=== PATIENT | female | born 1970 | race Hispanic/Latino ===

== ENCOUNTER 2017-07-31 01:56 | Emergency (ER) | payer SELFPAY ==
[2017-07-31 02:07] VITALS: BMI 16.4
[2017-07-31 02:16] VITALS: RESP 20; TEMP 98.6
--- NOTE | 2017-07-31 02:17 | ED PDOC ---
Arrival/HPI - General Chief Complaint: Female Genitourinary Time Seen by Provider: 07/31/17 02:03 Historian: Patient - History of Present Illness Narrative History of Present Illness (Text): 07/31/17 02:14 Franco Figueroa is a 47 year old female who presents to the emergency department complaining of 2 week duration of left lower quadrant abdominal pain associated with difficulty urinating. Patient also reports of some dizziness. Denies any fever, chills, chest pain, shortness of breath, nausea, vomiting, diarrhea, or any other complaints at this time. Time/Duration: > week (2 weeks ) Severity Level: Mild Activities at Onset: Light Past Medical History - Provider Review Nursing Documentation Reviewed: Yes - Reproductive Menopause: Yes - Cardiac Hx Cardiac Disorders: No (denies) - Psychiatric Hx Substance Use: No - Surgical History Hx Appendectomy: Yes Hx Orthopedic Surgery: Yes (L femur) - Anesthesia Hx Anesthesia: Yes Hx Anesthesia Reactions: No Family/Social History - Physician Review Nursing Documentation Reviewed: Yes Family/Social History: No Known Family HX Smoking Status: Current Some Days Smoker Hx Alcohol Use: No Hx Substance Use: No Allergies/Home Meds Allergies/Adverse Reactions: Allergies No Known Allergies Allergy (Verified 07/31/17 02:16) Review of Systems - Physician Review All systems were reviewed & negative as marked: Yes - Review of Systems Constitutional: Normal Respiratory: Normal. absent: SOB, Cough, Sputum Cardiovascular: Normal. absent: Chest Pain, Palpitations Gastrointestinal: Abdominal Pain (left lower quadrant ). absent: Nausea, Vomiting Genitourinary Female: Urine Output Changes (difficulty to urinate ). absent: Hematuria Neurological: Dizziness. absent: Headache Physical Exam Vital Signs Temp Pulse Resp BP Pulse Ox 07/31/17 05:55 83 20 101/58 L 98 07/31/17 02:15 98.6 F 68 20 113/72 95 - Systems Exam Head: Present: Atraumatic, Normocephalic Pupils: Present: PERRL Conjunctiva: Present: Normal Mouth: Present: Moist Mucous Membranes Respiratory/Chest: Present: Clear to Auscultation, Good Air Exchange. No: Respiratory Distress, Accessory Muscle Use Cardiovascular: Present: Regular Rate and Rhythm, Normal S1, S2. No: Murmurs Abdomen: Present: Normal Bowel Sounds. No: Tenderness, Distention, Peritoneal Signs Back: Present: Normal Inspection. No: CVA Tenderness Upper Extremity: Present: Normal Inspection. No: Cyanosis, Edema Lower Extremity: Present: Normal Inspection. No: Edema Neurological: Present: GCS=15, CN II-XII Intact, Speech Normal, Motor Func Grossly Intact, Normal Sensory Function Skin: Present: Warm, Dry, Normal Color. No: Rashes Psychiatric: Present: Alert, Oriented x 3, Normal Insight, Normal Concentration Medical Decision Making ED Course and Treatment: 07/31/17 02:19 Impression: A 47 year old female who presents to the emergency department complaining of left lower quadrant abdominal pain associated with difficulty urinating. Plan: -- Labs -- Bladder scan -- POC urine -- Urinalysis -- Reassess and disposition Progress Notes: 07/31/17 05:31 catheter inserted with 200 ml of urine return. pt states symptoms have improved post treatment. States she is comfortable with the plan to be discharged home. Advised to follow up with PMD within few days and return to emergency department for new/worsening symptoms. - Lab Interpretations Lab Results: 07/31/17 02:47 07/31/17 03:15 Lab Results 07/31/17 03:15: Sodium 140, Potassium 4.6, Chloride 98, Carbon Dioxide 35 H, Anion Gap 12, BUN 12, Creatinine 0.6, Est GFR ( Amer) > 60, Est GFR (Non- Af Amer) > 60, Random Glucose 83, Calcium 9.9, Total Bilirubin 0.5, AST 52 H, ALT 36, Alkaline Phosphatase 68, Total Protein 7.4, Albumin 4.2, Globulin 3.2, Albumin/Globulin Ratio 1.3, Lipase 65 07/31/17 03:09: Urine Color Yellow, Urine Appearance Clear, Urine pH 7.0, Ur Specific [place] 1.010, Urine Protein Negative, Urine Glucose (UA) Negative, Urine Ketones Negative, Urine Blood Negative, Urine Nitrate Negative, Urine Bilirubin Negative, Urine Urobilinogen 0.2, Ur Leukocyte Esterase Negative 07/31/17 02:47: PT 10.3, INR 0.95, APTT 30.2 07/31/17 02:47: WBC 7.2, RBC 4.73, Hgb 14.7, Hct 43.6, MCV 92.2, MCH 31.1, MCHC 33.7, RDW 14.3, Plt Count 211, MPV 10.2, Gran % 48.5 L, Lymph % (Auto) 36.4 H, [place] % (Auto) 7.1 H, Eos % (Auto) 7.7 H, Baso % (Auto) 0.3, Gran # 3.49, Lymph # 2.6, [place] # 0.5, Eos # 0.6, Baso # 0.02 I have reviewed the lab results: Yes - RAD Interpretation Narrative RAD Interpretations (Text): EXAM: CT Abdomen and Pelvis Without Intravenous Contrast FINDINGS: Lower thorax: There is minimal bibasilar atelectasis. ABDOMEN: Liver: There are no focal liver lesions present. Gallbladder and bile ducts: Gallbladder is decompressed. No calcified stones. No ductal dilation. Pancreas: The pancreas is not very well seen due to the lack of intraperitoneal and retroperitoneal adipose. Spleen: The spleen is normal. Adrenals: No definite adrenal masses identified. Kidneys and ureters: Bilateral renal calculi. There is no evidence of hydronephrosis. Stomach and bowel: The stomach is normal. Colonic constipation is present. There is no evidence of intestinal obstruction. No mucosal thickening. Appendix: By history the patient is post appendectomy. PELVIS: Bladder: Bladder is decompressed around a Calles catheter. No stones. Reproductive: Unremarkable as visualized. ABDOMEN and PELVIS: Intraperitoneal space: No definite ascites. There is no free intraperitoneal air. Retroperitoneal space: The study is significantly limited by the lack of intraperitoneal and retroperitoneal adipose, lack of oral and IV contrast. Bones/joints: Left hip demonstrates an intramedullary yuni and dynamic screw combination traversing an old trochanteric region fracture. There are mild degenerative changes present. There is mild diffuse osteopenia. No dislocation. Soft tissues: Unremarkable. Vasculature: The aorta demonstrates moderate atherosclerotic calcification. No abdominal aortic aneurysm. Lymph nodes: No definite lymphadenopathy identified. IMPRESSION: 1. The study is significantly limited by the lack of intraperitoneal and retroperitoneal adipose, lack of oral and IV contrast. 2. No definite acute pathology identified in the abdomen or pelvis. Radiology Orders: 07/31/17 03:16 ABD & PELVIS W/O PO OR IV CONT [CT] Stat Healthcare Financial Analyst: Radiologist - Medication Orders Current Medication Orders: Discontinued Medications Cephalexin Monohydrate (Keflex) 500 mg PO STAT STA PRN Reason: Protocol Stop: 07/31/17 05:28 Last Admin: 07/31/17 05:57 Dose: Not Given Non-Admin Reason: Patient Refused Sodium Chloride (Sodium Chloride 0.9%) 1,000 mls @ 80 mls/hr IV .[id number] LAWRENCE Last Admin: 07/31/17 03:47 Dose: 80 mls/hr Morphine Sulfate (Morphine) 2 mg IVP STAT STA Stop: 07/31/17 02:56 Last Admin: 07/31/17 03:31 Dose: 2 mg Ondansetron HCl (Zofran Inj) 4 mg IVP STAT STA Stop: 07/31/17 02:57 Last Admin: 07/31/17 03:47 Dose: 4 mg Phenazopyridine HCl (Pyridium) 200 mg PO STAT STA Stop: 07/31/17 05:27 Last Admin: 07/31/17 05:57 Dose: Not Given Non-Admin Reason: Patient Refused - Scribe Statement The provider has reviewed the documentation as recorded by the Carla Plummer Provider Attestation: All medical record entries made by the Janiibtevin were at my direction and personally dictated by me. I have reviewed the chart and agree that the record accurately reflects my personal performance of the history, physical exam, medical decision making, and the department course for this patient. I have also personally directed, reviewed, and agree with the discharge instructions and disposition. Disposition/Present on Arrival - Present on Arrival Any Indicators Present on Arrival: No History of DVT/PE: No History of Uncontrolled Diabetes: No Urinary Catheter: No History of Decub. Ulcer: No History Surgical Site Infection Following: None - Disposition Have Diagnosis and Disposition been Completed?: Yes Diagnosis: Urinary retention Disposition: HOME/ ROUTINE Disposition Time: 05:30 Condition: GOOD Discharge Instructions (ExitCare): Acute Urinary Retention in Women (ED) Prescriptions: Cephalexin [Keflex] 500 mg PO BID #14 capsule Phenazopyridine [Pyridium] 200 mg PO TID #6 tab Referrals: Manuel Tolbert MD [Primary Care Provider] - Follow up with primary Solo Corey MD [Staff Provider] - Follow up with primary Forms: [employer] (Maori)
[2017-07-31 02:55] LABS: BASO # 0.02 K/mm3 (0.0-2.0); BASO % 0.3 % (0.0-3.0); EOS # 0.6 (0.0-0.7); EOS % 7.7 % (1.5-5.0); GRAN # 3.49 (1.4-6.5); GRAN % 48.5 % (50.0-68.0); HEMATOCRIT 43.6 % (36.0-48.0); LYMPH # 2.6 (1.2-3.4); LYMPH % 36.4 % (22.0-35.0); MEAN CELL VOLUME 92.2 fl (80.0-105.0); MEAN CORPUSCULAR HEMOGLOBIN 31.1 pg (25.0-35.0); MEAN CORPUSCULAR HGB CONC 33.7 g/dl (31.0-37.0); MEAN PLATELET VOLUME 10.2 fl (7.0-11.0); MONO # 0.5 (0.1-0.6); MONO % 7.1 % (1.0-6.0); RED CELL DISTRIBUTION WIDTH 14.3 % (11.5-14.5); WHITE BLOOD COUNT 7.2 10^3/ul (4.5-11.0)
[2017-07-31] MEDS ORDERED: Morphine 2 mg/ml ISec IVP STA (02:55)
[2017-07-31] MEDS ORDERED: Sodium Chloride 0.9% 1,000 ML IV SCH (03:00)
[2017-07-31 03:07] LABS: INR 0.95 (0.93-1.08); PARTIAL THROMBOPLASTIN TIME 30.2 Seconds (23.7-30.8)
[2017-07-31 03:24] LABS: URINE BILIRUBIN NEGATIVE (NEGATIVE); URINE BLOOD NEGATIVE (NEGATIVE); URINE GLUCOSE (UA) NEGATIVE (NEGATIVE); URINE KETONE NEGATIVE (NEGATIVE); URINE LEUKOCYTE ESTERASE NEGATIVE Leu/uL (NEGATIVE); URINE PROTEIN NEGATIVE mg/dL (<30 mg/dL); URINE UROBILINOGEN 0.2 E.U./dL (<1 E.U./dL)
[2017-07-31 03:37] LABS: URINE APPEARANCE CLEAR (CLEAR); URINE COLOR YELLOW (YELLOW)
[2017-07-31 03:49] LABS: ALB/GLOB RATIO 1.3 (1.1-1.8); ALKALINE PHOSPHATASE 68 U/L (38-126); ALT/SGPT 36 U/L (7-56); AST/SGOT 52 U/L (14-36); BILIRUBIN,TOTAL 0.5 mg/dL (0.2-1.3); BLOOD UREA NITROGEN 12 mg/dL (7-21); CALCIUM 9.9 mg/dL (8.4-10.5); CARBON DIOXIDE 35 mmol/L (21-33); CHLORIDE 98 mmol/L (95-110); GFR AFRICAN-AMERICAN > 60; GLUCOSE,RANDOM 83 mg/dL (70-110); LIPASE 65 U/L (23-300); POTASSIUM 4.6 mmol/L (3.6-5.0); SODIUM 140 mmol/L (132-148); TOTAL PROTEIN 7.4 g/dL (5.8-8.3)
--- NOTE | 2017-07-31 04:27 | CT ---
EXAM: CT Abdomen and Pelvis Without Intravenous Contrast CLINICAL HISTORY: 47 years old, female; Pain; Abdominal pain; Generalized; Prior surgery; Surgery date: 6+ months; Surgery type: Appendectomy; Additional info: Abd pain TECHNIQUE: Axial computed tomography images of the abdomen and pelvis without intravenous contrast. All CT scans at this facility use one or more dose reduction techniques, viz.: automated exposure control; ma/kV adjustment per patient size (including targeted exams where dose is matched to indication; i.e. head); or iterative reconstruction technique. Coronal and sagittal reformatted images were created and reviewed. COMPARISON: CR - HIP LEFT 2 VIEW 11/22/2015 5:57:33 PM FINDINGS: Lower thorax: There is minimal bibasilar atelectasis. ABDOMEN: Liver: There are no focal liver lesions present. Gallbladder and bile ducts: Gallbladder is decompressed. No calcified stones. No ductal dilation. Pancreas: The pancreas is not very well seen due to the lack of intraperitoneal and retroperitoneal adipose. Spleen: The spleen is normal. Adrenals: No definite adrenal masses identified. Kidneys and ureters: Bilateral renal calculi. There is no evidence of hydronephrosis. Stomach and bowel: The stomach is normal. Colonic constipation is present. There is no evidence of intestinal obstruction. No mucosal thickening. Appendix: By history the patient is post appendectomy. PELVIS: Bladder: Bladder is decompressed around a Calles catheter. No stones. Reproductive: Unremarkable as visualized. ABDOMEN and PELVIS: Intraperitoneal space: No definite ascites. There is no free intraperitoneal air. Retroperitoneal space: The study is significantly limited by the lack of intraperitoneal and retroperitoneal adipose, lack of oral and IV contrast. Bones/joints: Left hip demonstrates an intramedullary yuni and dynamic screw combination traversing an old trochanteric region fracture. There are mild degenerative changes present. There is mild diffuse osteopenia. No dislocation. Soft tissues: Unremarkable. Vasculature: The aorta demonstrates moderate atherosclerotic calcification. No abdominal aortic aneurysm. Lymph nodes: No definite lymphadenopathy identified. IMPRESSION: 1. The study is significantly limited by the lack of intraperitoneal and retroperitoneal adipose, lack of oral and IV contrast. 2. No definite acute pathology identified in the abdomen or pelvis.
[2017-07-31 06:00] VITALS: BP 101/58; PULSE 83; O2SAT 98
== END 2017-07-31 05:58 | disposition home or self-care (01) ==
LOC: ED 01:56
DX: R33.9 Retention of urine, unspecified (principal)
CPT/HCPCS: 74176; 80053; 81003; 83690; 85025; 85610; 85730; 96374; 96375; 99284; J2270; J2405; J7040

== ENCOUNTER 2017-10-13 05:55 | Emergency (ER) | payer SELFPAY ==
[2017-10-13 05:55] VITALS: BMI 16.4
--- NOTE | 2017-10-13 06:20 | ED PDOC ---
Arrival/HPI - General Historian: Patient - History of Present Illness Time/Duration: Prior to Arrival, < month Symptom Course: Unchanged Quality: Unable to Describe Severity Level: Moderate - General Chief Complaint: Lower Extremity Problem/Injury Time Seen by Provider: 10/13/17 05:56 - History of Present Illness Narrative History of Present Illness (Text): 10/13/17 06:16 This is a 47 yo female with past medical hx of COPD, opiate abuse presenting with chief complaint of leg swelling. Patient says right leg has been swollen for 3-4 weeks now. This has never happened before. It has also become painful around the ankle. She is also reporting low grade fevers. She denies chest pain , shortness of breath. She says she is now unable to walk and has to use a cane to move around. She is reporting extreme difficulty even getting into her bed. PMH: COPD, opiate abuse PSH: breast implants, left femur sx Allergies: NKDA FH: Pancreatic cancer, heart disease, valvular disease Home meds: albuterol, percocet (not by rx) Social hx: current smoker. for 18 yrs. 1ppd. does not drink. denies illicit drug use. born in . ([place]) Past Medical History - Provider Review Nursing Documentation Reviewed: Yes - Travel History Have you recently traveled outside [place] w/in the past 3 mons?: No - Infectious Disease Hx of Infectious Diseases: None - Tetanus Immunization Tetanus Immunization: Unknown - Cardiac Hx Cardiac Disorders: No (denies) - Psychiatric Hx Substance Use: No - Surgical History Hx Appendectomy: Yes Hx Orthopedic Surgery: Yes (L femur) - Anesthesia Hx Anesthesia: Yes Hx Anesthesia Reactions: No Family/Social History - Physician Review Nursing Documentation Reviewed: Yes Family/Social History: CAD/OK, Neoplasm/Cancer Smoking Status: Heavy Smoker > 10 Cigarettes Daily Hx Alcohol Use: No Hx Substance Use: No Hx Substance Use Treatment: No Allergies/Home Meds Allergies/Adverse Reactions: Allergies No Known Allergies Allergy (Verified 07/31/17 02:16) Home Medications: Home Meds Medication Instructions Recorded Confirmed No Known Home Med 10/13/17 10/13/17 Review of Systems - Review of Systems Constitutional: Fevers Eyes: absent: Vision Changes, Photophobia ENT: absent: Hearing Changes, Tinnitus Respiratory: Wheezing. absent: Cough Cardiovascular: absent: Chest Pain, Palpitations Gastrointestinal: absent: Abdominal Pain, Stool Changes Genitourinary Female: absent: Dysuria, Frequency Musculoskeletal: absent: Arthralgias, Back Pain Skin: absent: Rash, Pruritis Neurological: absent: Headache, Dizziness Endocrine: absent: Diaphoresis, Polyuria Hemo/Lymphatic: absent: Adenopathy, Easy Bleeding Psychiatric: absent: Anxiety, Depression Physical Exam Vital Signs Reviewed: Yes Appearance: Positive for: Cachectic Mental Status: Positive for: Alert and Oriented X 3 - Systems Exam Head: Present: Atraumatic, Normocephalic Pupils: Present: PERRL Extroacular Muscles: Present: EOMI Mouth: Present: Moist Mucous Membranes Neck: Present: Normal Range of Motion. No: Meningeal Signs Respiratory/Chest: Present: Wheezes. No: Respiratory Distress Cardiovascular: Present: Normal S1, S2, Tachycardic Abdomen: No: Tenderness, Distention, Peritoneal Signs Upper Extremity: Present: Normal Inspection. No: Cyanosis, Edema Lower Extremity: Present: Edema, Tenderness, Swelling Neurological: Present: CN II-XII Intact, Speech Normal Skin: Present: Warm, Dry Psychiatric: Present: Alert, Oriented x 3, Normal Insight, Normal Concentration Vital Signs Temp Pulse Resp BP Pulse Ox 10/13/17 08:20 99 F 78 18 129/78 98 10/13/17 06:13 99.2 F 108 H 19 115/68 91 L Medical Decision Making ED Course and Treatment: Impression: Pt seen and evaluated with medical library assistant. Pt, whose past medical history includes COPD and opiate abuse, presented for right leg swelling for past 3-4 weeks. Aware and agree with HPI, clinical findings, plan, and management. Plan: -- US Duplex Lower Extremities -- EKG -- Labs -- Duoneb -- Reassess and disposition (Mickey Reich) - Lab Interpretations Lab Results: 10/13/17 06:35 10/13/17 06:35 Lab Results 10/13/17 06:35: Sodium 141, Potassium 4.0, Chloride 100, Carbon Dioxide 34 H, Anion Gap 11, BUN 12, Creatinine 0.6 L, Est GFR ( Amer) > 60, Est GFR ( Non-Af Amer) > 60, Random Glucose 116 H, Calcium 9.6, Total Bilirubin 0.5, AST 42 H, ALT 36, Alkaline Phosphatase 59, Total Protein 7.2, Albumin 4.0, Globulin 3.1, Albumin/Globulin Ratio 1.3 10/13/17 06:35: WBC 8.4 D, RBC 4.52, Hgb 14.2, Hct 43.6, MCV 96.5, MCH 31.4, MCHC 32.6, RDW 14.5, Plt Count 218, MPV 9.8, Gran % 53.4, Lymph % (Auto) 31.6, [place] % (Auto) 6.3 H, Eos % (Auto) 8.3 H, Baso % (Auto) 0.4, Gran # 4.50, Lymph # 2.7, [place] # 0.5, Eos # 0.7, Baso # 0.03 - RAD Interpretation Radiology Orders: 10/13/17 06:15 DUPLEX LOWER EXTRM VEIN BILAT [US] Stat - Medication Orders Current Medication Orders: Discontinued Medications Albuterol/Ipratropium (Duoneb 3 Mg/0.5 Mg (3 Ml) Ud) 3 ml IH Q15M LAWRENCE Stop: 10/13/17 07:01 Last Admin: 10/13/17 07:14 Dose: 3 ml Oxycodone/Acetaminophen (Percocet 5/325 Mg Tab) 1 tab PO STAT STA Stop: 10/13/17 07:47 Last Admin: 10/13/17 07:57 Dose: 1 tab MAR Pain Assessment Document 10/13/17 07:57 AUSTYNO (Rec: 10/13/17 07:58 AUSTYNO [id number]) Pain Reassessment Is this a pain reassessment? Yes Sleep Is patient sleeping during reassessment? No Presence of Pain Presence of Pain Yes Pain Scale Used Pain Scale Used Numeric Location Left, Right or Bilateral Bilateral Upper or Lower Lower Pain Location Body Site Leg Disposition/Present on Arrival - Present on Arrival Any Indicators Present on Arrival: No History of DVT/PE: No History of Uncontrolled Diabetes: No Urinary Catheter: No History of Decub. Ulcer: No History Surgical Site Infection Following: None - Disposition Have Diagnosis and Disposition been Completed?: Yes Disposition Time: 07:00 - Disposition Diagnosis: Peripheral edema Disposition: HOME/ ROUTINE Condition: STABLE Discharge Instructions (ExitCare): Leg Edema (ED) Forms: [employer] (Brazilian)
[2017-10-13] MEDS: Albuterol-Ipratrop 3 mg / 0.5 (3 ml) UD IH SCH ×3 (06:37→07:14)
[2017-10-13 06:54] LABS: BASO # 0.03 K/mm3 (0.0-2.0); BASO % 0.4 % (0.0-3.0); EOS # 0.7 (0.0-0.7); EOS % 8.3 % (1.5-5.0); GRAN # 4.5 (1.4-6.5); GRAN % 53.4 % (50.0-68.0); HEMATOCRIT 43.6 % (36.0-48.0); LYMPH # 2.7 (1.2-3.4); LYMPH % 31.6 % (22.0-35.0); MEAN CELL VOLUME 96.5 fl (80.0-105.0); MEAN CORPUSCULAR HEMOGLOBIN 31.4 pg (25.0-35.0); MEAN CORPUSCULAR HGB CONC 32.6 g/dl (31.0-37.0); MEAN PLATELET VOLUME 9.8 fl (7.0-11.0); MONO # 0.5 (0.1-0.6); MONO % 6.3 % (1.0-6.0); RED CELL DISTRIBUTION WIDTH 14.5 % (11.5-14.5); WHITE BLOOD COUNT 8.4 10^3/ul (4.5-11.0)
[2017-10-13 07:32] LABS: ALB/GLOB RATIO 1.3 (1.1-1.8); ALKALINE PHOSPHATASE 59 U/L (38-126); ALT/SGPT 36 U/L (7-56); AST/SGOT 42 U/L (14-36); BILIRUBIN,TOTAL 0.5 mg/dL (0.2-1.3); BLOOD UREA NITROGEN 12 mg/dL (7-21); CALCIUM 9.6 mg/dL (8.4-10.5); CARBON DIOXIDE 34 mmol/L (21-33); CHLORIDE 100 mmol/L (98-107); GFR AFRICAN-AMERICAN > 60; GLUCOSE,RANDOM 116 mg/dL (70-110); SODIUM 141 mmol/L (132-148); TOTAL PROTEIN 7.2 g/dL (5.8-8.3)
--- NOTE | 2017-10-13 07:33 | ED PDOC ---
Physical Exam Vital Signs Reviewed: Yes Vital Signs Temp Pulse Resp BP Pulse Ox 10/13/17 06:13 99.2 F 108 H 19 115/68 91 L Temperature: Afebrile Blood Pressure: Normal Pulse: Tachycardic Respiratory Rate: Normal Appearance: Positive for: Well-Appearing, Non-Toxic, Comfortable Pain Distress: None Mental Status: Positive for: Alert and Oriented X 3 Medical Decision Making ED Course and Treatment: 10/13/17 07:32 Case endorsed to me by Dr. Reich. Patient presents to the emergency department with right leg swelling. Pending ultrasound of lower extremity, labs , reevaluation and final disposition. 10/13/17 08:30 Ultrasound negative for DVT bilaterally as per US tech. Normal LFTs (AST baseline) and normal kidney function. Skin nonerythematous, no evidence of cellulitis. Patient denies chest pain or dyspnea. Will require further primary care follow up for evaluation leg swelling but no emergent findings to indicate further ED testing. - Lab Interpretations Lab Results: 10/13/17 06:35 10/13/17 06:35 Lab Results 10/13/17 06:35: Sodium 141, Potassium 4.0, Chloride 100, Carbon Dioxide 34 H, Anion Gap 11, BUN 12, Creatinine 0.6 L, Est GFR ( Amer) > 60, Est GFR ( Non-Af Amer) > 60, Random Glucose 116 H, Calcium 9.6, Total Bilirubin 0.5, AST 42 H, ALT 36, Alkaline Phosphatase 59, Total Protein 7.2, Albumin 4.0, Globulin 3.1, Albumin/Globulin Ratio 1.3 10/13/17 06:35: WBC 8.4 D, RBC 4.52, Hgb 14.2, Hct 43.6, MCV 96.5, MCH 31.4, MCHC 32.6, RDW 14.5, Plt Count 218, MPV 9.8, Gran % 53.4, Lymph % (Auto) 31.6, [place] % (Auto) 6.3 H, Eos % (Auto) 8.3 H, Baso % (Auto) 0.4, Gran # 4.50, Lymph # 2.7, [place] # 0.5, Eos # 0.7, Baso # 0.03 I have reviewed the lab results: Yes - RAD Interpretation Radiology Orders: 10/13/17 06:15 DUPLEX LOWER EXTRM VEIN BILAT [US] Stat - Medication Orders Current Medication Orders: Discontinued Medications Albuterol/Ipratropium (Duoneb 3 Mg/0.5 Mg (3 Ml) Ud) 3 ml IH Q15M LAWRENCE Stop: 10/13/17 07:01 Last Admin: 10/13/17 07:14 Dose: 3 ml Oxycodone/Acetaminophen (Percocet 5/325 Mg Tab) 1 tab PO STAT STA Stop: 10/13/17 07:47 Last Admin: 10/13/17 07:57 Dose: 1 tab MAR Pain Assessment Document 10/13/17 07:57 EWO (Rec: 10/13/17 07:58 EWO [id number]) Pain Reassessment Is this a pain reassessment? Yes Sleep Is patient sleeping during reassessment? No Presence of Pain Presence of Pain Yes Pain Scale Used Pain Scale Used Numeric Location Left, Right or Bilateral Bilateral Upper or Lower Lower Pain Location Body Site Leg - Scribe Statement The provider has reviewed the documentation as recorded by the Carla Kelsey Provider Scribe Attestation: All medical record entries made by the Scribe were at my direction and personally dictated by me. I have reviewed the chart and agree that the record accurately reflects my personal performance of the history, physical exam, medical decision making, and the department course for this patient. I have also personally directed, reviewed, and agree with the discharge instructions and disposition. Disposition/Present on Arrival - Present on Arrival Any Indicators Present on Arrival: No History of DVT/PE: No History of Uncontrolled Diabetes: No Urinary Catheter: No History of Decub. Ulcer: No History Surgical Site Infection Following: None - Disposition Have Diagnosis and Disposition been Completed?: Yes Diagnosis: Peripheral edema Disposition: HOME/ ROUTINE Disposition Time: 08:31 Patient Plan: Discharge Condition: STABLE Discharge Instructions (ExitCare): Leg Edema (ED) Forms: [employer] (Mongolian)
[2017-10-13] MEDS ORDERED: Oxycodone/Acetaminophen 5/325 mg Tab PO STA (07:46)
[2017-10-13 08:46] VITALS: BP 129/78; PULSE 78; RESP 18; TEMP 99; O2SAT 98
--- NOTE | 2017-10-13 09:10 | CARD ---
APPROVED REPORT EKG Measurement Heart [id number] ID [id number] <Conclusion> Normal sinus rhythm with sinus arrhythmia Right atrial enlargement RVCD
--- NOTE | 2017-10-13 13:39 | US ---
HISTORY: Leg pain and swelling. Evaluate for DVT PHYSICIAN(S): Will Sargent MD. TECHNIQUE: Duplex sonography and color-flow Doppler with graded compression were used to evaluate the deep venous systems of both lower extremities. Evaluation of the left tibial veins is somewhat limited by edema. FINDINGS: The visualized deep venous systems of both lower extremities are sonographically normal and compressible. Normal wave forms and augmentation are seen. There is no sonographic evidence for deep venous thrombosis in the visualized segments of both lower extremities. IMPRESSION: No sonographic evidence for deep venous thrombosis in the visualized segments of both lower extremities.
== END 2017-10-13 08:48 | disposition home or self-care (01) ==
LOC: ED 05:55
DX: R60.0 Localized edema (principal); F17.210 Nicotine dependence, cigarettes, uncomplicated; J44.9 Chronic obstructive pulmonary disease, unspecified; Z82.49 Family history of ischemic heart disease and other diseases of the circulatory system

== ENCOUNTER 2018-02-06 03:01 | Observation (INO) | payer MEDICAID, OTHER ==
[2018-02-06 03:03] VITALS: BMI 16.4
--- NOTE | 2018-02-06 03:25 | ED PDOC ---
Arrival/HPI - General Time Seen by Provider: 02/06/18 03:20 Historian: Patient - History of Present Illness Narrative History of Present Illness (Text): 02/06/18 03:25 Franco Figueroa is a 48 year old female, whose past medical history includes COPD and cellulitis, who presents to the Emergency department complaining of worsening bilateral lower extremity swelling with associated redness and pain for the past few days. Patient states she has experienced similar symptoms in the past and was treated for cellulitis. Patient notes pain with ambulation. Patient denies any history of fever, chills, chest pain, shortness of breath, back pain, neck pain, headache, dizziness, or any other complaints. Symptom Onset: Gradual Symptom Course: Unchanged Activities at Onset: Light Context: Home Past Medical History - Provider Review Nursing Documentation Reviewed: Yes - Infectious Disease Hx of Infectious Diseases: None - Tetanus Immunization Tetanus Immunization: Unknown - Cardiac Hx Cardiac Disorders: No (denies) - Psychiatric Hx Substance Use: No - Surgical History Hx Appendectomy: Yes Hx Orthopedic Surgery: Yes (L femur) - Anesthesia Hx Anesthesia: Yes Hx Anesthesia Reactions: No Family/Social History - Physician Review Nursing Documentation Reviewed: Yes Family/Social History: Unknown Family HX Smoking Status: Heavy Smoker > 10 Cigarettes Daily Hx Alcohol Use: No Hx Substance Use: No Hx Substance Use Treatment: No Allergies/Home Meds Allergies/Adverse Reactions: Allergies No Known Allergies Allergy (Verified 07/31/17 02:16) Home Medications: Home Meds Medication Instructions Recorded Confirmed No Known Home Med 10/13/17 10/13/17 Review of Systems - Physician Review All systems were reviewed & negative as marked: Yes - Review of Systems Constitutional: Normal. absent: Fevers Eyes: Normal ENT: Normal Respiratory: Normal. absent: SOB, Cough Cardiovascular: Normal. absent: Chest Pain Gastrointestinal: Normal. absent: Abdominal Pain, Diarrhea, Nausea, Vomiting Genitourinary Female: Normal. absent: Dysuria, Frequency, Hematuria, Urine Output Changes Musculoskeletal: Other (+bilateral lower extremity pain/swellin). absent: Back Pain, Neck Pain Skin: Normal. absent: Rash Neurological: Normal. absent: Headache, Dizziness Endocrine: Normal Hemo/Lymphatic: Normal Psychiatric: Normal Physical Exam Vital Signs Reviewed: Yes Vital Signs Temp Pulse Resp BP Pulse Ox 02/06/18 03:22 98.1 F 95 H 18 109/55 L 97 Temperature: Afebrile Blood Pressure: Normal Pulse: Regular Respiratory Rate: Normal Appearance: Positive for: Well-Appearing, Non-Toxic, Comfortable Pain Distress: None Mental Status: Positive for: Alert and Oriented X 3 - Systems Exam Head: Present: Atraumatic, Normocephalic Pupils: Present: PERRL Extroacular Muscles: Present: EOMI Conjunctiva: Present: Normal Mouth: Present: Moist Mucous Membranes Neck: Present: Normal Range of Motion. No: Meningeal Signs, MIDLINE TENDERNESS , Paraspinal Tenderness Respiratory/Chest: Present: Clear to Auscultation, Good Air Exchange. No: Respiratory Distress, Accessory Muscle Use Cardiovascular: Present: Regular Rate and Rhythm, Normal S1, S2. No: Murmurs Abdomen: Present: Normal Bowel Sounds. No: Tenderness, Distention, Peritoneal Signs Back: Present: Normal Inspection Upper Extremity: Present: Normal Inspection. No: Cyanosis, Edema Lower Extremity: Present: NORMAL PULSES, Normal ROM, Tenderness, Erythema ( Confluent erythema to bilateral erythema with tenderness on palpation), Neurovascularly Intact. No: CALF TENDERNESS, Elaine's Sign Neurological: Present: GCS=15, CN II-XII Intact, Speech Normal Skin: Present: Warm, Dry, Normal Color. No: Rashes Psychiatric: Present: Alert, Oriented x 3, Normal Insight, Normal Concentration Medical Decision Making ED Course and Treatment: 02/06/18 03:25 Impression: 48 year old female complaining of worsening bilateral lower extremity swelling, redness, and pain. Differential Diagnosis included but are not limited to: cellulitis Plan: -- US Duplex Lower Extremities -- Labs, blood cultures -- Vancomycin -- Zosyn -- Morphine -- Reassess and disposition Progress Notes: 02/06/18 04:34 US Duplex Lower Extremities negative for DVT. 02/06/18 04:41 Case discussed with medical administrative specialist orthodontic technician assistant, who is aware and area a 02/06/18 04:[address] Rehman, who is aware and agrees with plan. Accepts pt in to hospitalist service. Pt will go to [facility] observation for lower extremity cellulitis. - Lab Interpretations Lab Results: 02/06/18 03:33 02/06/18 03:33 Lab Results 02/06/18 03:33: WBC 8.2, RBC 5.04, Hgb 16.0, Hct 46.8, MCV 92.9 D, MCH 31.7, MCHC 34.2, RDW 14.6 H, Plt Count 245, MPV 9.9 02/06/18 03:33: Sodium 141, Potassium 3.9, Chloride 97 L, Carbon Dioxide 33, Anion Gap 14, BUN 12, Creatinine 0.6 L, Est GFR ( Amer) > 60, Est GFR ( Non-Af Amer) > 60, Random Glucose 89, Calcium 10.2, Total Bilirubin 0.3, AST 73 H D, ALT 53, Alkaline Phosphatase 78, Total Protein 7.6, Albumin 4.3, Globulin 3.3, Albumin/Globulin Ratio 1.3 02/06/18 03:33: PT 10.3, INR 0.91 L, APTT 37.6 H - RAD Interpretation Radiology Orders: 02/06/18 03:39 DUPLEX LOWER EXTRM VEIN BILAT [US] Stat - Medication Orders Current Medication Orders: Vancomycin HCl (Vancomycin 1gm) 1 gm in 250 mls @ 167 mls/hr IVPB STAT STA PRN Reason: Protocol Stop: 02/06/18 05:06 Last Admin: 02/06/18 04:21 Dose: 167 mls/hr eMAR Start Stop Document 02/06/18 04:21 AD (Rec: 02/06/18 04:25 AD [id number]) Intravenous Solution Start Date 02/06/18 Start Time 04:25 Discontinued Medications Piperacillin Sod/Tazobactam Sod (Zosyn 3.375 In Ns 100ml) 100 mls @ 200 mls/hr IV STAT STA PRN Reason: Protocol Stop: 02/06/18 04:01 Last Admin: 02/06/18 03:52 Dose: 200 mls/hr eMAR Start Stop Document 02/06/18 03:52 AD (Rec: 02/06/18 03:52 AD [id number]) Intravenous Solution Start Date 02/06/18 Start Time 03:52 Morphine Sulfate (Morphine) 4 mg IVP STAT STA Stop: 02/06/18 03:40 Last Admin: 02/06/18 03:47 Dose: 4 mg MAR Pain Assessment Document 02/06/18 03:47 AD (Rec: 02/06/18 03:52 AD [id number]) Pain Reassessment Is this a pain reassessment? No Presence of Pain Presence of Pain Yes Pain Scale Used Pain Scale Used Numeric Location Left, Right or Bilateral Bilateral Upper or Lower Lower Pain Location Body Site Leg Description Description Constant Intensity of Pain at present 8 Pain Behavior Facial Grimacing Aggravating Factors Exercise/Activity Standing Walking Alleviating Factors Inactivity IVP Administration Document 02/06/18 03:47 AD (Rec: 02/06/18 03:52 AD [id number]) Charges for Administration # of IVP Administrations 1 - Scribe Statement The provider has reviewed the documentation as recorded by the Scribtevin Genao All medical record entries made by the Scribe were at my direction and personally dictated by me. I have reviewed the chart and agree that the record accurately reflects my personal performance of the history, physical exam, medical decision making, and the department course for this patient. I have also personally directed, reviewed, and agree with the discharge instructions and disposition. Disposition/Present on Arrival - Present on Arrival Any Indicators Present on Arrival: No History of DVT/PE: No History of Uncontrolled Diabetes: No Urinary Catheter: No History of Decub. Ulcer: No History Surgical Site Infection Following: None - Disposition Have Diagnosis and Disposition been Completed?: Yes Diagnosis: Cellulitis Disposition: HOSPITALIZED Disposition Time: 04:50 Condition: STABLE Discharge Instructions (ExitCare): Cellulitis (ED)
[2018-02-06] MEDS ORDERED: Piperacillin/Tazobact 3.375 gm 100 ML IV STA (03:32)
[2018-02-06] MEDS ORDERED: Vancomycin 1gm in NS 250ml 1 GM/250 ML BAG IVPB STA (03:37)
[2018-02-06] MEDS ORDERED: Morphine 4 mg/ml ISec IVP STA (03:39)
[2018-02-06 04:15] LABS: MEAN CORPUSCULAR HEMOGLOBIN 31.7 pg (25.0-35.0); MEAN CORPUSCULAR HGB CONC 34.2 g/dl (31.0-37.0); MEAN PLATELET VOLUME 9.9 fl (7.0-11.0); RBC 5.04 10^6/uL (3.5-6.1); RED CELL DISTRIBUTION WIDTH 14.6 % (11.5-14.5); WHITE BLOOD COUNT 8.2 10^3/ul (4.5-11.0)
[2018-02-06 04:16] LABS: MEAN CELL VOLUME 92.9 fl (80.0-105.0)
[2018-02-06 04:17] LABS: ALB/GLOB RATIO 1.3 (1.1-1.8); ALBUMIN 4.3 g/dL (3.0-4.8); ALT/SGPT 53 U/L (7-56); AST/SGOT 73 U/L (14-36); BLOOD UREA NITROGEN 12 mg/dL (7-21); CALCIUM 10.2 mg/dL (8.4-10.5); GFR AFRICAN-AMERICAN > 60; GFR NON-AFRICAN AMERICAN > 60
[2018-02-06 04:21] LABS: INR 0.91 (0.93-1.08); PARTIAL THROMBOPLASTIN TIME 37.6 Seconds (25.1-36.5); PROTHROMBIN TIME 10.3 SECONDS (9.4-12.5)
[2018-02-06] MEDS ORDERED: Albuterol-Ipratrop 3 mg / 0.5 (3 ml) UD IH PRN (05:22)
[2018-02-06] MEDS ORDERED: Albuterol-Ipratrop 3 mg / 0.5 (3 ml) UD IH STA (05:22)
--- NOTE | 2018-02-06 05:34 | CP.PCM.HP ---
History of Present Illness - History of Present Illness History of Present Illness: Temo Chaudhry PGY1 H&P Note for Hospitalist Service cc: cellulitis of LE Ms. Figueroa is a 48 yo female with past medical hx of COPD, tobacco and opioid abuse who presents to ED with complaints of leg swelling, redness and pain that has progressively worsened since May 2017. The patient states that her problems began with a staph infection from a pedicure, and progressed over the past months to cellulitis. She states that she has been misdiagnosed several times and treated with penicillins for about 3 courses during that period with no resolution. she has also seen a developing machine operator who cast the foot thinking it's a ligament issue, and was told to wear compression stockings which also didn't help. she states her treatment has been back and forth between Dr. Jackson, [facility] [place] [facility] and [facility]. She says over the past week, her LE pain has worsened , erythema has spread and it has become painful to walk; she also complains of tingling in her LE's. She reports that she has been taking percocet from a family friend for her pain. She has no recent illness, recent travel, denies IVDA or injections into the legs, or any new tattoos in the area. She denies chest pain, shortness of breath, abdominal pain, fevers/chills, headaches, changes in vision, urinary/bowel habit changes. 12-pt ROS was reviewed and is otherwise unremarkable. PMD: Dr. Jackson PMH: as above PSH: breast implants, left femur sx, appendectomy Allergies: NKDA Home meds: albuterol, percocet (not by rx) Social hx: +tobacco 1ppd for many years. denies ETOH, illicit drug use, or ever injecting drugs. +percocet use from a friend FH: father: Pancreatic cancer, heart disease. mother: valvular disease Present on Admission - Present on Admission Any Indicators Present on Admission: No Review of Systems - Review of Systems All systems: reviewed and no additional remarkable complaints except (as per HPI ) Past Patient History - Infectious Disease Hx of Infectious Diseases: None - Tetanus Immunizations Tetanus Immunization: Unknown - Past Medical History & Family History Past Medical History?: Yes Past Family History: Reviewed and not pertinent - Past Social History Smoking Status: Heavy Smoker > 10 Cigarettes Daily Alcohol: None Drugs: Denies Home Situation {Lives}: With Family - CARDIAC Hx Cardiac Disorders: No (denies) - PULMONARY Hx Asthma: Yes Hx Chronic Obstructive Pulmonary Disease (COPD): Yes - NEUROLOGICAL Hx Neurological Disorder: No - HEENT Hx HEENT Problems: No - RENAL Hx Chronic Kidney Disease: No - ENDOCRINE/METABOLIC Hx Endocrine Disorders: No - HEMATOLOGICAL/ONCOLOGICAL Hx Blood Disorders: No - INTEGUMENTARY Hx Cellulitis: Yes - MUSCULOSKELETAL/RHEUMATOLOGICAL Hx Musculoskeletal Disorders: No - GASTROINTESTINAL Hx Gastrointestinal Disorders: No - GENITOURINARY/GYNECOLOGICAL Hx Genitourinary Disorders: No - PSYCHIATRIC Hx Psychophysiologic Disorder: No Hx Substance Use: No - SURGICAL HISTORY Hx Appendectomy: Yes Hx Orthopedic Surgery: Yes (L femur) Other/Comment: Breast implants - ANESTHESIA Hx Anesthesia: Yes Hx Anesthesia Reactions: No Meds Allergies/Adverse Reactions: Allergies Allergy/AdvReac Type Severity Reaction Status Date / Time No Known Allergies Allergy Verified 07/31/17 02:16 Physical Exam - Constitutional Appears: Well, Non-toxic, No Acute Distress, Cachectic - Head Exam Head Exam: ATRAUMATIC, NORMAL INSPECTION - Eye Exam Eye Exam: EOMI, Normal appearance, PERRL - ENT Exam ENT Exam: Mucous Membranes Moist - Neck Exam Neck exam: Positive for: Normal Inspection. Negative for: Tenderness, Thyromegaly - Respiratory Exam Respiratory Exam: Wheezes (R>L diffuse expiratory ), NORMAL BREATHING PATTERN. absent: Rales, Rhonchi, Respiratory Distress - Cardiovascular Exam Cardiovascular Exam: RRR, +S1, +S2. absent: Systolic Murmur - GI/Abdominal Exam GI & Abdominal Exam: Normal Bowel Sounds, Soft. absent: Distended, Tenderness - Extremities Exam Extremities exam: Positive for: full ROM, normal inspection, pedal edema (1+), tenderness (b/l LE knee and distal), pedal pulses present Additional comments: b/l erythema and edema in LE distal to knee - Back Exam Back exam: NORMAL INSPECTION - Neurological Exam Neurological exam: Alert, Oriented x3 - Psychiatric Exam Psychiatric exam: Normal Affect, Normal Mood - Skin Skin Exam: Normal Color, Warm Additional comments: LE findings explained above Results - Vital Signs Recent Vital Signs: Last Vital Signs Temp 98.1 F 02/06/18 03:22 Pulse 95 H 02/06/18 03:22 Resp 18 02/06/18 03:22 BP 109/55 L 02/06/18 03:22 Pulse Ox 97 02/06/18 03:22 - Labs Result Diagrams: 02/06/18 03:33 02/06/18 03:33 Assessment & Plan - Assessment and Plan (Free Text) Assessment: 48 yo female with past medical hx of COPD, tobacco and opioid abuse who presents to ED with complaints of leg swelling, redness and pain that has progressively worsened since May 2017, becoming severe this past week. Per ED note, US Duplex Lower Extremities negative for DVT. Plan: 1. LE swelling and erythema likely 2/2 cellulitis - cont on vancomycin and Zosyn given that patient poorly responded to penicillins before - BP stable at this time and there are no signs of sepsis - blood culture ordered - procal ordered - cont zinc and vit C - ID consulted, recs appreciated - LE US showed no DVT - TSH ordered to r/o myxedema - abd US ordered given elevated AST and to r/o cirrhosis - Albumin WNL so nephrotic syndrome unlikely - PT Eval - motrin prn pain - tylenol prn fevers - NS @ 100 for hydration - trend CBC daily 2. Hx COPD - duonebs stat - duonebs prn - O2 PRN 3. Hx tobacco smoke - nicotine patch prn 4. Hx opioid use - UDS ordered - ETOH level ordered PTX/Heparin for GI/DVT ppx Regular diet Patient was seen, examined and discussed with attending, Dr. Sherie Chaudhry
[2018-02-06] MEDS: Sodium Chloride 0.9% 1,000 ML IV SCH (05:40)
[2018-02-06 07:35] LABS: BARBITURATES, UR NEGATIVE (NEGATIVE); BENZODIAZEPINES, UR POSITIVE (NEGATIVE); OPIATES, UR POSITIVE (NEGATIVE); PHENCYCLIDINE, UR NEGATIVE (NEGATIVE)
[2018-02-06 07:39] VITALS: RESP 20
[2018-02-06] MEDS: Pantoprazole 40 mg EC Tab PO SCH ×2 (07:41→11:59)
[2018-02-06 08:09] LABS: PH,URINE 7.5 (4.7-8.0); URINE BILIRUBIN NEGATIVE (NEGATIVE); URINE BLOOD NEGATIVE (NEGATIVE); URINE GLUCOSE (UA) NEGATIVE (NEGATIVE); URINE LEUKOCYTE ESTERASE NEGATIVE Leu/uL (NEGATIVE); URINE PROTEIN NEGATIVE mg/dL (<30 mg/dL); URINE UROBILINOGEN 0.2 E.U./dL (<1 E.U./dL)
[2018-02-06 08:14] LABS: URINE APPEARANCE CLEAR (CLEAR); URINE COLOR YELLOW (YELLOW)
--- NOTE | 2018-02-06 11:00 | US ---
HISTORY: r/o cirrhosis COMPARISON: CT abdomen and pelvis 07/31/2017 TECHNIQUE: Grayscale imaging was performed. FINDINGS: LIVER: Measures 15.8 cm. Normal echogenicity of the liver parenchyma. No mass. No intrahepatic bile duct dilatation. GALLBLADDER: There are no gallstones, wall thickening or pericholecystic fluid. The sonographic Lerner's sign is negative. COMMON BILE DUCT: Measures 7.1 mm. No stones. There is mild diffuse dilatation. PANCREAS: Unremarkable as visualized. No mass. No ductal dilatation. RIGHT KIDNEY: Measures 11.0cm. Normal echogenicity. No mass, or hydronephrosis. There is a 0.5 cm nonobstructing stone in the lower pole. LEFT KIDNEY: Measures 10.6cm. Normal echogenicity. No calculus, mass, or hydronephrosis. SPLEEN: Normal in size and contour. No mass. AORTA: No aneurysmal dilatation. IVC: Unremarkable. OTHER FINDINGS: None. IMPRESSION: 1. 0.5 cm nonobstructing stone in the lower pole of the right kidney. No hydronephrosis. 2. No cholelithiasis. 3. Mild diffuse dilatation of the common bile duct without sonographic evidence for choledocholithiasis.
--- NOTE | 2018-02-06 11:14 | US ---
HISTORY: Leg pain and swelling. Evaluate for DVT PHYSICIAN(S): Will Sargent MD. TECHNIQUE: Duplex sonography and color-flow Doppler with graded compression were used to evaluate the deep venous systems of both lower extremities. FINDINGS: The visualized deep venous systems of both lower extremities are sonographically normal and compressible. Normal wave forms and augmentation are seen. There is no sonographic evidence for deep venous thrombosis in the visualized segments of both lower extremities. IMPRESSION: No sonographic evidence for deep venous thrombosis in the visualized segments of both lower extremities.
[2018-02-06 11:30] LABS: BASO # 0.02 K/mm3 (0.0-2.0); BASO % 0.2 % (0.0-3.0); EOS # 0.5 (0.0-0.7); EOS % 5.7 % (1.5-5.0); GRAN # 4.92 (1.4-6.5); GRAN % 55.7 % (50.0-68.0); HEMOGLOBIN 15.4 g/dL (12.0-16.0); LYMPH # 2.8 (1.2-3.4); LYMPH % 31.2 % (22.0-35.0); MEAN CELL VOLUME 91.9 fl (80.0-105.0); MEAN CORPUSCULAR HEMOGLOBIN 31.4 pg (25.0-35.0); MEAN CORPUSCULAR HGB CONC 34.1 g/dl (31.0-37.0); MEAN PLATELET VOLUME 9.6 fl (7.0-11.0); MONO # 0.6 (0.1-0.6); MONO % 7.2 % (1.0-6.0); RBC 4.91 10^6/uL (3.5-6.1); RED CELL DISTRIBUTION WIDTH 14.4 % (11.5-14.5); WHITE BLOOD COUNT 8.8 10^3/ul (4.5-11.0)
[2018-02-06 11:50] LABS: ALB/GLOB RATIO 1.3 (1.1-1.8); ALBUMIN 3.7 g/dL (3.0-4.8); ALT/SGPT 49 U/L (7-56); AST/SGOT 52 U/L (14-36); BLOOD UREA NITROGEN 8 mg/dL (7-21); CALCIUM 9.7 mg/dL (8.4-10.5); GFR AFRICAN-AMERICAN > 60; GFR NON-AFRICAN AMERICAN > 60
[2018-02-06] MEDS: Piperacillin/Tazobact 3.375 gm 100 ML IVPB SCH ×3 (11:59→21:02)
--- NOTE | 2018-02-06 16:29 | CP.PCM.CON ---
History of Present Illness - History of Present Illness History of Present Illness: 48 year old female with PMH of COPD, history of opioid use, significant smoking history, S/P breast implants placement, history of left femoral surgery, S/P appendectomy [place] [facility] [place] of leg swelling which has worsened over the past few days. She has been having leg swelling on-and-off since May of last year and has been to different doctors and hospitals since then up to now. She has been treated with different types of antibiotics with no complete resolution. She has also seen a underground supervisor and her right leg was in a cast for a while. She denies fever or chills, no specific trauma to the foot, no walking barefoot, no soaking of feet or legs in water, denies headache or dizziness, no chest pain, no SOB, no cough or colds, no nausea or vomiting, no abdominal pain , no diarrhea, no dysuria. Infectious Diseases consult is requested to further evaluate and manage. Review of Systems - Review of Systems All systems: reviewed and no additional remarkable complaints except (as per HPI ) Past Patient History - Infectious Disease Hx of Infectious Diseases: None - Tetanus Immunizations Tetanus Immunization: Unknown - Past Medical History & Family History Past Medical History?: Yes Past Family History: Reviewed and not pertinent - Past Social History Smoking Status: Heavy Smoker > 10 Cigarettes Daily Alcohol: None Drugs: Denies Home Situation {Lives}: With Family - CARDIAC Hx Cardiac Disorders: No (denies) - PULMONARY Hx Asthma: Yes Hx Chronic Obstructive Pulmonary Disease (COPD): Yes - NEUROLOGICAL Hx Neurological Disorder: No - HEENT Hx HEENT Problems: No - RENAL Hx Chronic Kidney Disease: No - ENDOCRINE/METABOLIC Hx Endocrine Disorders: No - HEMATOLOGICAL/ONCOLOGICAL Hx Blood Disorders: No - INTEGUMENTARY Hx Cellulitis: Yes - MUSCULOSKELETAL/RHEUMATOLOGICAL Hx Musculoskeletal Disorders: No - GASTROINTESTINAL Hx Gastrointestinal Disorders: No - GENITOURINARY/GYNECOLOGICAL Hx Genitourinary Disorders: No - PSYCHIATRIC Hx Psychophysiologic Disorder: No Hx Substance Use: No - SURGICAL HISTORY Hx Appendectomy: Yes Hx Orthopedic Surgery: Yes (L femur) Other/Comment: Breast implants - ANESTHESIA Hx Anesthesia: Yes Hx Anesthesia Reactions: No Meds Allergies/Adverse Reactions: Allergies Allergy/AdvReac Type Severity Reaction Status Date / Time No Known Allergies Allergy Verified 07/31/17 02:16 - Medications Medications: Current Medications Acetaminophen (Tylenol 325mg Tab) 650 mg PO Q4 PRN PRN Reason: Fever >100.4 F Albuterol/Ipratropium (Duoneb 3 Mg/0.5 Mg (3 Ml) Ud) 3 ml IH M2TOREP PRN PRN Reason: Wheezing Ascorbic Acid (Vitamin C 500 Mg Tab) 500 mg PO DAILY [facility] Heparin Sodium (Porcine) (Heparin) 5,000 units SC Q12 [facility] PRN Reason: Protocol Vancomycin HCl (Vancomycin 1gm) 1 gm in 250 mls @ 167 mls/hr IVPB Q12H [facility] PRN Reason: Protocol Sodium Chloride (Sodium Chloride 0.9%) 1,000 mls @ 100 mls/hr IV .Q10H [facility] Piperacillin Sod/Tazobactam Sod (Zosyn 3.375 In Ns 100ml) 100 mls @ 200 mls/hr IVPB Q6H [facility] PRN Reason: Protocol Stop: 02/06/18 16:29 Ibuprofen (Motrin Tab) 400 mg PO Q6H PRN PRN Reason: Pain, Mild (1-3) Nicotine (Nicoderm Cq) 1 patch TD DAILY PRN PRN Reason: URGE TO SMOKE Pantoprazole Sodium (Protonix Ec Tab) 40 mg PO 0600 [facility] Zinc Sulfate (Zinc Sulfate 220 Mg Cap) 220 mg PO DAILY [facility] Physical Exam - Constitutional Appears: Non-toxic, Chronically Ill - Head Exam Head Exam: NORMAL INSPECTION - ENT Exam ENT Exam: Mucous Membranes Moist - Neck Exam Neck exam: Negative for: Meningismus - Respiratory Exam Respiratory Exam: Decreased Breath Sounds - Cardiovascular Exam Cardiovascular Exam: +S1, +S2 - GI/Abdominal Exam GI & Abdominal Exam: Soft. absent: Tenderness - Extremities Exam Additional comments: both legs with swelling right greater than left with erythema and tenderness, no open wounds noted Results - Vital Signs Recent Vital Signs: Last Vital Signs Temp 98.1 F 02/06/18 03:22 Pulse 95 H 02/06/18 03:22 Resp 18 02/06/18 03:22 BP 109/55 L 02/06/18 03:22 Pulse Ox 97 02/06/18 03:22 - Labs Result Diagrams: 02/06/18 11:25 02/06/18 11:25 Assessment & Plan - Assessment and Plan (Free Text) Plan: Assessment consider bilateral lower extremity cellulitis COPD history of opioid use significant smoking history S/P breast implants placement history of left femoral surgery S/P appendectomy Plan Started the patient on Vancomycin and Zosyn pending blood cx; duplex U/S of legs does not show DVT; follow up 2D echo recommended to patient MRI but patient still wants to think about it will monitor clinically
--- NOTE | 2018-02-06 16:41 | CT ---
PROCEDURE: CT Chest without contrast HISTORY: r/o lung ca COMPARISON: None. TECHNIQUE: Contiguous axial images were obtained through the chest without intravenous contrast enhancement. Sagittal and coronal reconstructions were performed. Radiation dose (DLP): 156 mGy-cm. This CT exam was performed using one or more of the following dose reduction techniques: Automated exposure control, adjustment of the mA and/or kV according to patient size, and/or use of iterative reconstruction technique. FINDINGS: LUNGS: Clear lungs. Visualized airway clear. The lungs have a hyper expanded appearance suggestive of COPD. MEDIASTINUM: Unremarkable thoracic aorta. No aneurysm. Normal sized heart. Main pulmonary artery unremarkable. No vascular congestion. No lymphadenopathy. PLEURA: No pleural fluid. No pneumothorax. BONES: No fracture. No destructive lesion. UPPER ABDOMEN: Grossly unremarkable. OTHER FINDINGS: None. IMPRESSION: Hyperexpanded lungs suggestive of COPD. No evidence of lung mass or nodule
[2018-02-06 16:59] LABS: HEPATITIS B SURFACE AG Negative (NEGATIVE)
[2018-02-06 17:05] LABS: HEPATITIS A IGM NEGATIVE (NEGATIVE); HEPATITIS B CORE AB NEGATIVE (NEGATIVE)
[2018-02-06 17:17] LABS: HEPATITIS C ANTIBODY NEGATIVE (NEGATIVE)
--- NOTE | 2018-02-06 17:30 | CARD ---
APPROVED REPORT EXAM: Two-dimensional and M-mode echocardiogram with Doppler and color Doppler. INDICATION R/O VEGETATIONS 2D DIMENSIONS Left Atrium (2D)3.0 (1.6-4.0cm)IVSd0.8 (0.7-1.1cm) LVDd4.1 (3.9-5.9cm)PWd0.8 (0.7-1.1cm) LVDs2.9 (2.5-4.0cm)FS (%) 29.4 % LVEF (%)56.9 (>50%) M-Mode DIMENSIONS Aortic Root2.30 (2.2-3.7cm)Aortic Cusp Exc.1.50 (1.5-2.0cm) Aortic Valve AoV Peak Aapbwuba285.0cm/Chanel Peak GR.7mmHg Mitral Valve MV E Zntucxvt64.1cm/sMV A Vzjqboxr50.0cm/sE/A ratio0.8 TDI E/Lateral E'0.0E/Medial E'0.0 Pulmonary Valve PV Peak Bljjhtmy04.3cm/sPV Peak Grad.1mmHg Tricuspid Valve TR Peak [id number]/sRAP [id number] Peak Gr.14mmHg [id number] LEFT VENTRICLE The left ventricle is normal size. There is normal left ventricular wall thickness. The left ventricular function is normal.EF-55-60% There is normal LV segmental wall motion. Transmitral Doppler flow pattern is Grade III-reversible restrictive diastolic dysfunction. The left ventricular diastolic function is normal. No left ventricle thrombus noted on this study. There is no ventricular septal defect visualized. There is no left ventricular aneurysm. There is no mass noted in the left ventricle. RIGHT VENTRICLE The right ventricle is normal size. There is normal right ventricular wall thickness. The right ventricular systolic function is normal. ATRIA The left atrium size is normal. The right atrium size is normal. The interatrial septum is intact with no evidence for an atrial septal defect. AORTIC VALVE The aortic valve is thickened but opens well. No aortic regurgitation is present. There is no aortic valvular stenosis. There is no aortic valvular vegetation. MITRAL VALVE The mitral valve is thickened but opens well. Mitral regurgitation is trace. There is no mitral valve stenosis. There is no evidence of mitral valve prolapse. TRICUSPID VALVE The tricuspid valve leaflets are thickened , but open well. There is trace tricuspid regurgitation.RVSP-24 mmof hg. There is no tricuspid valve stenosis. There is no tricuspid valve prolapse or vegetation. PULMONIC VALVE The pulmonary valve is normal in structure. There is no pulmonic valvular regurgitation. There is no pulmonic valvular stenosis. GREAT VESSELS The aortic root is normal in size. The ascending aorta is normal in size. The pulmonary artery is normal. The IVC is normal in size and collapses >50% with inspiration. PERICARDIAL EFFUSION There is no pleural effusion. There is no pericardial effusion. <Conclusion> Normal chamber Size.EF-55-60% Trace MR/ TR RVSP-24 mmof hg. No obvious vegetation noted.
[2018-02-06] MEDS: Vancomycin 1gm in NS 250ml 1 GM/250 ML BAG IVPB SCH (18:29)
[2018-02-07] MEDS: Sodium Chloride 0.9% 1,000 ML IV SCH (03:54)
[2018-02-07] MEDS: Piperacillin/Tazobact 3.375 gm 100 ML IVPB SCH ×2 (05:18→10:16)
[2018-02-07] MEDS: Pantoprazole 40 mg EC Tab PO SCH (05:18)
[2018-02-07] MEDS: Vancomycin 1gm in NS 250ml 1 GM/250 ML BAG IVPB SCH (05:35)
[2018-02-07 07:49] VITALS: BP 97/60; PULSE 77; TEMP 97.8; O2SAT 97
--- NOTE | 2018-02-07 15:36 | CP.PCM.DIS ---
Provider - Provider Date of Admission: 02/06/18 04:48 Attending physician: Bri Huerta MD Primary care physician: Cal Jackson MD Hospital Course - Lab Results Lab Results: Micro Results 02/06/18 06:40 Urine Urine Culture - Final No Growth (<1,000 CFU/ML) Most Recent Lab Values WBC 8.8 10^3/ul (4.5-11.0) 02/06/18 11:25 RBC 4.91 10^6/uL (3.5-6.1) 02/06/18 11:25 Hgb 15.4 g/dL (12.0-16.0) 02/06/18 11:25 Hct 45.1 % (36.0-48.0) 02/06/18 11:25 MCV 91.9 fl (80.0-105.0) 02/06/18 11:25 MCH 31.4 pg (25.0-35.0) 02/06/18 11:25 MCHC 34.1 g/dl (31.0-37.0) 02/06/18 11:25 RDW 14.4 % (11.5-14.5) 02/06/18 11:25 Plt Count 223 10^3/uL (120.0-450.0) 02/06/18 11:25 MPV 9.6 fl (7.0-11.0) 02/06/18 11:25 Gran % 55.7 % (50.0-68.0) 02/06/18 11:25 Lymph % (Auto) 31.2 % (22.0-35.0) 02/06/18 11:25 [place] % (Auto) 7.2 % (1.0-6.0) H 02/06/18 11:25 Eos % (Auto) 5.7 % (1.5-5.0) H 02/06/18 11:25 Baso % (Auto) 0.2 % (0.0-3.0) 02/06/18 11:25 Gran # 4.92 (1.4-6.5) 02/06/18 11:25 Lymph # (Auto) 2.8 (1.2-3.4) 02/06/18 11:25 [place] # (Auto) 0.6 (0.1-0.6) 02/06/18 11:25 Eos # (Auto) 0.5 (0.0-0.7) 02/06/18 11:25 Baso # (Auto) 0.02 K/mm3 (0.0-2.0) 02/06/18 11:25 ESR 12 mm/hr (0.0-20.0) 02/06/18 11:25 PT 10.3 SECONDS (9.4-12.5) 02/06/18 03:33 INR 0.91 (0.93-1.08) L 02/06/18 03:33 APTT 37.6 Seconds (25.1-36.5) H 02/06/18 03:33 Sodium 139 mmol/L (132-148) 02/06/18 11:25 Potassium 4.1 mmol/L (3.6-5.0) 02/06/18 11:25 Chloride 104 mmol/L (98-107) 02/06/18 11:25 Carbon Dioxide 28 mmol/L (21-33) 02/06/18 11:25 Anion Gap 11 (10-20) 02/06/18 11:25 BUN 8 mg/dL (7-21) 02/06/18 11:25 Creatinine 0.6 mg/dl (0.7-1.2) L 02/06/18 11:25 Est GFR ( Amer) > 60 02/06/18 11:25 Est GFR (Non-Af Amer) > 60 02/06/18 11:25 Random Glucose 92 mg/dL (70-110) 02/06/18 11:25 Calcium 9.7 mg/dL (8.4-10.5) 02/06/18 11:25 Total Bilirubin 0.3 mg/dL (0.2-1.3) 02/06/18 11:25 AST 52 U/L (14-36) H D 02/06/18 11:25 ALT 49 U/L (7-56) 02/06/18 11:25 Alkaline Phosphatase 62 U/L (38-126) 02/06/18 11:25 C-React Prot High Sens 2.30 mg/L (1.00-3.00) 02/06/18 11:25 Total Protein 6.7 g/dL (5.8-8.3) 02/06/18 11:25 Albumin 3.7 g/dL (3.0-4.8) 02/06/18 11:25 Globulin 2.9 gm/dL 02/06/18 11:25 Albumin/Globulin Ratio 1.3 (1.1-1.8) 02/06/18 11:25 Procalcitonin 0.05 NG/ML (0.19-0.49) L 02/06/18 03:33 TSH 3rd Generation 2.55 mIU/mL (0.46-4.68) 02/06/18 03:33 Urine Color Yellow (YELLOW) 02/06/18 06:40 Urine Appearance Clear (CLEAR) 02/06/18 06:40 Urine pH 7.5 (4.7-8.0) 02/06/18 06:40 Ur Specific [place] 1.015 (1.005-1.035) 02/06/18 06:40 Urine Protein Negative mg/dL (<30 mg/dL) 02/06/18 06:40 Urine Glucose (UA) Negative mg/dL (NEGATIVE) 02/06/18 06:40 Urine Ketones Negative mg/dL (NEGATIVE) 02/06/18 06:40 Urine Blood Negative (NEGATIVE) 02/06/18 06:40 Urine Nitrate Negative (NEGATIVE) 02/06/18 06:40 Urine Bilirubin Negative (NEGATIVE) 02/06/18 06:40 Urine Urobilinogen 0.2 E.U./dL (<1 E.U./dL) 02/06/18 06:40 Ur Leukocyte Esterase Negative [place]/uL (NEGATIVE) 02/06/18 06:40 Urine Opiates Screen Positive (NEGATIVE) H 02/06/18 06:40 Urine Methadone Screen Negative (NEGATIVE) 02/06/18 06:40 Ur Barbiturates Screen Negative (NEGATIVE) 02/06/18 06:40 Ur Phencyclidine Scrn Negative (NEGATIVE) 02/06/18 06:40 Ur Amphetamines Screen Negative (NEGATIVE) 02/06/18 06:40 U Benzodiazepines Scrn Positive (NEGATIVE) 02/06/18 06:40 U Oth Cocaine Metabols Negative (NEGATIVE) 02/06/18 06:40 U Cannabinoids Screen Negative (NEGATIVE) 02/06/18 06:40 Alcohol, Quantitative < 10 mg/dL (0-10) 02/06/18 03:33 Hepatitis A IgM Ab Negative (NEGATIVE) 02/06/18 11:25 Hep Bs Antigen Negative (NEGATIVE) 02/06/18 11:25 Hep B Core IgM Ab Negative (NEGATIVE) 02/06/18 11:25 Hepatitis C Antibody Negative (NEGATIVE) 02/06/18 11:25 HIV 1&2 Ag/Ab, 4th Gen Nonreactive (Nonreactive) 02/06/18 11:15 Discharge Exam - Head Exam Head Exam: NORMAL INSPECTION Discharge Plan - Discharge Medications Prescriptions: Cephalexin [cephalexin] 500 mg PO Q12 7 Days #14 cap Doxycycline Hyclate 100 mg PO Q12 7 Days #14 capsule - Follow Up Plan Condition: STABLE Disposition: HOME/ ROUTINE Instructions: Cellulitis (DC), Cellulitis (GEN) Referrals: Cal Jackson MD [Primary Care Provider] -
[2018-02-07] MEDS ORDERED: Clotrimazole/Betamethasone Lotion(30 ml) TOP SCH (18:00)
--- NOTE | 2018-02-07 19:21 | CON ---
DATE: HISTORY OF PRESENT ILLNESS: A 48-year-old female seen at bedside for consultation, evaluation, and management of bilateral lower leg edema with accompanying cellulitis. Patient states that she has had on and off leg swelling since 05/2017 and over the course of the last few days, her legs became exceedingly red, hot, and swollen and she went to the ER for admission. PAST MEDICAL HISTORY: Significant for COPD, lower extremity edema with bouts of cellulitis, hypertension, and opioid dependency. PAST SURGICAL HISTORY: Includes left femur surgery, appendectomy, and bilateral breast implantation. ALLERGIES: PATIENT HAS NO KNOWN DRUG ALLERGIES. SOCIAL HISTORY: Patient is a heavy smoker for over 30 years. Denies alcohol abuse and has an opioid addiction. However, she has no history of IV drug use. FAMILY HISTORY: Remarkable for heart disease on both sides of her family as well as pancreatic cancer on her father's side. VITAL SIGNS: Reveal a temperature of 97.8, pulse rate of 77, blood pressure of 97/60, respiratory rate of 20. LABORATORY FINDINGS: Reveal a white count of 8.8, hemoglobin of 15.4, hematocrit of 45.1, platelet count of 223. Her ESR is 12. Both blood and urine cultures reveal no growth. Venous duplex reveals no sonographic evidence for DVT of either lower extremity. OBJECTIVE: Weakly palpable pedal pulses noted bilaterally, +2 nonpitting lower extremity edema noted bilaterally. Lower extremity skin presents thin, shining, discolored. There is increased temperature gradient. Both lower legs present with edema and erythema, which has been decreasing since admission. There are no open lesions, there are no interdigital macerations, there are no signs of wounds or portal of entry to suggest foreign body. ASSESSMENT: Bilateral lower leg edema with accompanying cellulitis. PLAN: Patient was examined. Legs were cleansed with normal sterile saline. Patient was advised that she needs to wear compression stockings 15 to 20 mm per mercury during the day and to be removed at night. She was told to follow up with her primary care doctor for possible diuretic use. Patient was once again warned of the dangers of smoking. Patient was encouraged to seek rehabilitation for opioid addiction. We will order Lotrisone cream to be applied to both lower legs to decrease her edema and moisturizer her skin. Omar Darling DPM [facility] # [phone]
== END 2018-02-07 12:06 | disposition home or self-care (01) ==
LOC: ED 03:01 → ERH 04:48 → 5RNO 06:23
PROVIDERS: ADMIT Internal Medicine; ATTEND Internal Medicine
DX: L03.116 Cellulitis of left lower limb (principal); L03.115 Cellulitis of right lower limb; F11.20 Opioid dependence, uncomplicated; J44.9 Chronic obstructive pulmonary disease, unspecified; I10 Essential (primary) hypertension; F17.210 Nicotine dependence, cigarettes, uncomplicated; Z98.82 Breast implant status; Z90.49 Acquired absence of other specified parts of digestive tract
CPT/HCPCS: 71250; 76700; 80053; 80074; 81003; 84145; 84443; 85025; 85027; 85610; 85651; 85730; 86140; 87040; 87086; 87389; 93306; 93970; 94640; 96374; 97161; 97530; 99285; G0378; G0480; G8978; G8979; J2270; J2543; J7040

== ENCOUNTER 2018-07-15 22:52 | Emergency (ER) | payer MEDICAID ==
[2018-07-15 23:02] VITALS: BMI 17.2
--- NOTE | 2018-07-16 00:14 | ED PDOC ---
Arrival/HPI - General Chief Complaint: Altered Mental Status Time Seen by Provider: 07/15/18 22:58 Historian: Patient - History of Present Illness Narrative History of Present Illness (Text): 07/16/18 23:45 48 year old female, with past history of substance abuse, presents to the Emergency department via EMS for evaluation of unresponsive state prior to arrival. As per EMS, patient was found unresponsive by her , who immediately called 911 for assistance. informs possible heroin use leading up to the situation. Upon arrival to the Emergency department, patient is responsive but is confused, unable to recall leading up to the event. Patient denies any substance use or alcohol consumption. Patient denies any somatic complaints. Patient denies any fevers, chills, headache, dizziness, chest pain, shortness of breath, dyspnea on exertion, cough, abdominal pain, nausea, vomiting, diarrhea, back pain, neck pain, or any other complaint. Patient informs smoking daily. Time/Duration: Prior to Arrival Symptom Onset: Gradual Symptom Course: Improving Activities at Onset: Light Context: Home Past Medical History - Provider Review Nursing Documentation Reviewed: Yes - Psychiatric Hx Substance Use: No Family/Social History - Physician Review Nursing Documentation Reviewed: Yes Family/Social History: No Known Family HX Smoking Status: Heavy Smoker > 10 Cigarettes Daily Hx Alcohol Use: No Hx Substance Use: No Allergies/Home Meds Allergies/Adverse Reactions: Allergies No Known Allergies Allergy (Verified 07/31/17 02:16) Review of Systems - Physician Review All systems were reviewed & negative as marked: Yes - Review of Systems Constitutional: absent: Fevers Respiratory: absent: SOB, Cough Cardiovascular: absent: Chest Pain, GAYTAN Gastrointestinal: absent: Abdominal Pain Musculoskeletal: absent: Back Pain, Neck Pain Neurological: absent: Headache, Dizziness Physical Exam Vital Signs Reviewed: Yes Vital Signs Pulse Resp BP Pulse Ox 07/16/18 03:30 97 07/16/18 03:00 75 19 112/70 97 07/16/18 01:47 67 18 104/64 92 L 07/16/18 01:10 104 H 18 133/70 94 L 07/16/18 00:59 66 10 L 74/50 L 89 L 07/15/18 23:00 100 H 10 L 98/67 L 87 L Temperature: Afebrile Blood Pressure: Normal Pulse: Regular Respiratory Rate: Normal Appearance: Positive for: Well-Appearing, Non-Toxic, Comfortable Pain Distress: None Mental Status: Positive for: Confused - Systems Exam Head: Present: Atraumatic, Normocephalic Pupils: Present: PERRL Extroacular Muscles: Present: EOMI Conjunctiva: Present: Normal Neck: Present: Normal Range of Motion Respiratory/Chest: Present: Clear to Auscultation, Good Air Exchange. No: Respiratory Distress, Accessory Muscle Use Cardiovascular: Present: Regular Rate and Rhythm, Normal S1, S2. No: Murmurs Abdomen: No: Tenderness, Distention, Peritoneal Signs Back: Present: Normal Inspection Upper Extremity: Present: Normal Inspection. No: Cyanosis, Edema Lower Extremity: Present: Normal Inspection. No: Edema Neurological: Present: GCS=15, CN II-XII Intact, Speech Normal Skin: Present: Warm, Dry, Normal Color. No: Rashes Psychiatric: Present: Alert, Other (Confused) Medical Decision Making ED Course and Treatment: 07/16/18 23:45 Impression: 48 year old female presents to the Emergency department s/p episode of unresponsiveness. Differential Diagnosis included but are not limited to: Substance abuse Plan: -- EKG -- Labs -- Urinalysis -- Reassess and disposition Prior Visits: Notes and results from previous visits were reviewed. Progress Notes: pt given narcan for hypotension and lethargy, afterwards pt became irate 07/16/18 02:58 The patient is choosing to leave against medical advice, present at bedside. I have personally explained to the patient that choosing to do so may result in permanent bodily harm or . I have discussed at great length that without further evaluation and monitoring there may be unforeseen circumstances and/or deterioration causing permanent bodily harm or as a result of their choice. The patient is alert, oriented, and shows the mental capacity to make clear decisions regarding the patients health care at this time. The patient continues to wish to leave against medical advice. is in agreement. In light of the patients decision to leave against medical advice, follow-up has been arranged and the patient is aware of the importance to following up as instructed. The patient has been advised that they should return to the emergency room immediately if they change their mind at any time, or if their condition begins to change or worsen in any way. 07/16/18 19:20 - Lab Interpretations Lab Results: 07/16/18 00:27 07/16/18 00:27 Lab Results 07/16/18 02:45: Urine Opiates Screen Positive H, Urine Methadone Screen Negative , Ur Barbiturates Screen Negative, Ur Phencyclidine Scrn Negative, Ur Amphetamines Screen Negative, U Benzodiazepines Scrn Positive H, U Oth Cocaine Metabols Negative, U Cannabinoids Screen Negative 07/16/18 02:45: Urine Color Yellow, Urine Appearance Clear, Urine pH 6.5, Ur Specific [place] 1.015, Urine Protein Negative, Urine Glucose (UA) Negative, Urine Ketones Negative, Urine Blood Negative, Urine Nitrate Negative, Urine Bilirubin Negative, Urine Urobilinogen 0.2, Ur Leukocyte Esterase Negative 07/16/18 01:22: Alcohol, Quantitative < 10 07/16/18 01:22: Salicylates < 1 L, Acetaminophen < 10.0 L 07/16/18 00:27: Sodium 140, Potassium 3.9, Chloride 98, Carbon Dioxide 28, Anion Gap 18, BUN 19, Creatinine 0.5 L, Est GFR ( Amer) > 60, Est GFR ( Non-Af Amer) > 60, Random Glucose 213 H, Calcium 9.0, Magnesium 2.3 H, Total Bilirubin 0.5, AST 124 H, ALT 78 H, Alkaline Phosphatase 75, Total Creatine Kinase 58, Total Protein 7.1, Albumin 4.0, Globulin 3.1, Albumin/Globulin Ratio 1.3 07/16/18 00:27: WBC 10.8, RBC 5.29, Hgb 16.6 H, Hct 49.4 H, MCV 93.4, MCH 31.4, MCHC 33.6, RDW 13.8, Plt Count 183, MPV 11.4 H, Gran % 37.8 L, Lymph % (Auto) 53.6 H, [place] % (Auto) 6.4 H, Eos % (Auto) 1.9, Baso % (Auto) 0.3, Gran # 4.08, Lymph # (Auto) 5.8 H, [place] # (Auto) 0.7 H, Eos # (Auto) 0.2, Baso # (Auto) 0.03 - EKG Interpretation EKG Interpretation (Text): 07/16/18 06:17 nsr rate 100 nssts changes - Medication Orders Current Medication Orders: Discontinued Medications Naloxone HCl (Narcan) 0.4 mg IVP STAT STA Stop: 07/16/18 00:36 Last Admin: 07/16/18 00:59 Dose: 0.4 mg IVP Administration Document 07/16/18 00:59 SS (Rec: 07/16/18 00:59 SS [id number]) Charges for Administration # of IVP Administrations 1 - Scribe Statement The provider has reviewed the documentation as recorded by the Scribe Willian Stephen. All medical record entries made by the Scribe were at my direction and personally dictated by me. I have reviewed the chart and agree that the record accurately reflects my personal performance of the history, physical exam, medical decision making, and the department course for this patient. I have also personally directed, reviewed, and agree with the discharge instructions and disposition. Disposition/Present on Arrival - Present on Arrival Any Indicators Present on Arrival: No History of DVT/PE: No History of Uncontrolled Diabetes: No Urinary Catheter: No History of Decub. Ulcer: No History Surgical Site Infection Following: None - Disposition Have Diagnosis and Disposition been Completed?: Yes Diagnosis: Substance abuse Disposition: AGAINST MEDICAL ADVICE Disposition Time: 03:30 Condition: UNKNOWN Forms: Bday ([place]ran)
[2018-07-16] MEDS ORDERED: Naloxone 0.4 mg/ml Inj (Adult) IVP STA (00:35)
[2018-07-16 00:51] LABS: BASO # 0.03 K/mm3 (0.0-2.0); BASO % 0.3 % (0.0-3.0); EOS # 0.2 (0.0-0.7); EOS % 1.9 % (1.5-5.0); GRAN # 4.08 (1.4-6.5); GRAN % 37.8 % (50.0-68.0); HEMOGLOBIN 16.6 g/dL (12.0-16.0); LYMPH # 5.8 (1.2-3.4); LYMPH % 53.6 % (22.0-35.0); MEAN CELL VOLUME 93.4 fl (80.0-105.0); MEAN CORPUSCULAR HEMOGLOBIN 31.4 pg (25.0-35.0); MEAN CORPUSCULAR HGB CONC 33.6 g/dl (31.0-37.0); MEAN PLATELET VOLUME 11.4 fl (7.0-11.0); MONO # 0.7 (0.1-0.6); MONO % 6.4 % (1.0-6.0); RBC 5.29 10^6/uL (3.5-6.1); RED CELL DISTRIBUTION WIDTH 13.8 % (11.5-14.5); WHITE BLOOD COUNT 10.8 10^3/ul (4.5-11.0)
[2018-07-16 01:04] LABS: ALB/GLOB RATIO 1.3 (1.1-1.8); ALT/SGPT 78 U/L (7-56); AST/SGOT 124 U/L (14-36); BLOOD UREA NITROGEN 19 mg/dL (7-21); GFR NON-AFRICAN AMERICAN > 60
[2018-07-16 02:37] LABS: ACETAMINOPHEN < 10.0 ug/ml (10.0-20.0); SALICYLATE < 1 mg/dL (2.0-20.0)
[2018-07-16 03:00] VITALS: BP 112/70; PULSE 75; RESP 19; O2SAT 97
[2018-07-16 03:13] LABS: PH,URINE 6.5 (4.7-8.0); URINE BILIRUBIN NEGATIVE (NEGATIVE); URINE BLOOD NEGATIVE (NEGATIVE); URINE GLUCOSE (UA) NEGATIVE (NEGATIVE); URINE LEUKOCYTE ESTERASE NEGATIVE Leu/uL (NEGATIVE); URINE PROTEIN NEGATIVE mg/dL (<30 mg/dL); URINE UROBILINOGEN 0.2 E.U./dL (<1 E.U./dL)
[2018-07-16 03:23] LABS: URINE APPEARANCE CLEAR (CLEAR); URINE COLOR YELLOW (YELLOW)
[2018-07-16 03:54] LABS: BARBITURATES, UR NEGATIVE (NEGATIVE); BENZODIAZEPINES, UR POSITIVE (NEGATIVE); OPIATES, UR POSITIVE (NEGATIVE); PHENCYCLIDINE, UR NEGATIVE (NEGATIVE)
--- NOTE | 2018-07-16 11:59 | CARD ---
APPROVED REPORT Date of service: 07/15/2018 EKG Measurement Heart [id number] <Conclusion> Normal sinus rhythm Biatrial enlargement RVCD Prolonged QTc
== END 2018-07-16 04:02 | disposition left against medical advice (07) ==
LOC: ED 22:52 → MERGE 22:52 → ED 07-16 04:02
DX: F19.10 Other psychoactive substance abuse, uncomplicated (principal); F17.210 Nicotine dependence, cigarettes, uncomplicated
CPT/HCPCS: 80053; 80320; 80324; 80329; 80345; 80346; 80349; 80353; 80358; 80361; 81003; 82550; 83735; 83992; 85025; 93005; 96374; 99285; J2310